=== PATIENT | male | born 1990 | race Caucasian/White ===

== ENCOUNTER 2020-01-27 12:07 | Emergency (ER) | payer SELFPAY ==
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
[2020-01-27 12:10] VITALS: BP 144/86; PULSE 117; RESP 18; TEMP 36.4; O2SAT 98
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
== END 2020-01-27 13:33 | disposition home or self-care (01) ==
PROVIDERS: Emergency Provider Emergency Medicine
DX: S42.021A Displaced fracture of shaft of right clavicle, initial encounter for closed fracture (principal); F17.200 Nicotine dependence, unspecified, uncomplicated; V86.55XA Driver of 3- or 4- wheeled all-terrain vehicle (ATV) injured in nontraffic accident, initial encounter
CPT/HCPCS: 71046; 99284; A4565; A9270

== ENCOUNTER 2020-02-05 00:35 | Day surgery (SDC) | payer SELFPAY ==
[2020-02-01 13:55] VITALS: BMI 29.0
[2020-02-05] VITALS (7 sets, daily range): BP systolic 103–136; BP diastolic 52–91; PULSE 91–111; RESP 12–16; TEMP 36.2–36.4; O2SAT 93–99
--- NOTE | ~2020-02-05 | XR_ITS ---
EXAMINATION: XR surgery orthopedic INDICATION: ORIF of the right clavicle TECHNIQUE: Two intraoperative fluoroscopic images are submitted for review. Fluoroscopy exposure time was 9.1 seconds The DAP for this procedure was 0.156 mGycm2. COMPARISON: 01/27/2020 FINDINGS: Fluoroscopic images demonstrate internal fixation of the previously described displaced and overriding right clavicle fracture. Alignment is anatomic. Please refer to procedure note for full d etails. IMPRESSION: 1. Findings consistent with ORIF of the right clavicle reduced to anatomic alignment. Please refer to procedure note for full details. Reviewed, dictated and finalized at location A. IMPRESSION: 1. Findings consistent with ORIF of the right clavicle reduced to anatomic alig nment. Please refer to procedure note for full details.
--- NOTE | 2020-02-05 10:58 | WPDHPUPDATE1 ---
History and Physical Update Update Date/Time: 02/05/20 10:58 History and Physical has been reviewed, including an updated exam of the patient. There are NO changes in the patient's condition. Risks, benefits, and alternatives have been discussed and questions answered. Patient agrees to proceed with procedure.
[2020-02-05] MEDS: LACTATED RINGERS 1,000 ML 30 ML IV CONT ×2 (11:50→16:04)
[2020-02-05] MEDS: IBUPROFEN IV 800 MG/200 ML 800 MG/200 ML BAG 400 MG IVPB (12:10)
--- NOTE | 2020-02-05 12:40 | WPDANESEPPF ---
Anes - Initial Pre Proc Eval Procedure: Operation Date: 02/05/20 13:00 Proposed Procedures p Open Reduction Internal Fixation Right Clavicle Fracture - Kan Argueta MD Date/Time: 02/05/20 12:40 Surgeon: Kan Argueta MD Pre Op Diagnosis: Right Clavicle Fx Patient Data Age: 29 Gender: M Height: 5 ft 10 in Weight: 95.5 kg Last Vital Signs Temp 97.2 F L 02/05/20 11:12 Pulse 100 02/05/20 11:12 Resp 16 02/05/20 11:12 BP 136/91 H 02/05/20 11:12 Pulse Ox 99 02/05/20 11:12 Allergies Allergy/AdvReac Type Severity Reaction Status Date / Time Penicillins Allergy Severe THROAT Verified 02/05/20 11:26 SWELLING/HIVES/FEVER amoxicillin AdvReac Mild THROAT Verified 02/05/20 11:27 SWELLING/HIVES/FEVER Home Medications Medication Instructions Recorded Confirmed Type hydrocodone 5 mg-acetaminophen 325 1 tablet PO Q6H PRN #20 tablet 02/01/20 02/05/20 Rx mg tablet ibuprofen 200 mg PO Q6H PRN 02/01/20 02/05/20 History Patient hx anesthesia problems: none Family hx anesthesia problems: none PMFSH Past Medical History Medical History (Updated 01/29/20 @ 11:50 by Kan Argueta MD) Clavicle fracture, shaft No active medical problems Social History Social History (Updated 01/29/20 @ 15:43 by Geneva Reed, RT(R)) Smoking packs per day: 1 Smoking cigarettes per day: 20.0 Years smoked: 14 Smoking pack-years: 14.00 Smoking status: Current every day smoker Alcohol intake: current 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 Questions were solicited and answers provided to the satisfaction of the patient/family/POA.
[2020-02-05] MEDS: CLINDAMYCIN 900 MG/NS 50 ML 900 MG/50 ML PIGGYBACK 50 MG IVPB (13:34)
[2020-02-05] MEDS: BUPIVACAINE/EPINEPHRINE 0.5% 30 ML VIAL INFILTRATE (14:30)
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
== END 2020-02-05 17:27 | disposition home or self-care (01) ==
PROVIDERS: Visit Provider Orthopaedic Surgery
PROC: (CPT 23515; principal; 2020-02-05 13:00)
DX: S42.021A Displaced fracture of shaft of right clavicle, initial encounter for closed fracture (principal); V86.55XA Driver of 3- or 4- wheeled all-terrain vehicle (ATV) injured in nontraffic accident, initial encounter; F17.210 Nicotine dependence, cigarettes, uncomplicated
CPT/HCPCS: 23515; A4565; C1713; J1100; J1170; J1741; J2250; J2370; J2405; J2704; J3010; J7120

== ENCOUNTER 2022-08-14 15:43 | Emergency (ER) | payer SELFPAY ==
--- NOTE | ~2022-08-14 | CT_ITS ---
EXAMINATION: CT abdomen pelvis wo con DATE: 08/14/2022 17:09 INDICATION: rt flank pain TECHNIQUE: Computed tomography (CT) of the abdomen and pelvis was performed without intravenous contr ast. Automated exposure control and iterative reconstruction technique were employed. The dose-length product was 574.61 mGy-cm. COMPARISON: 04/13/2010. FINDINGS: Lower thorax: Unremarkable Liver: Geographic fatty infiltration with enlargement. Biliary/Gallbladder: Gallbladder is normal. No bile duct dilation. Pancreas: No mass or duct dilation. Spleen: Normal. Adrenals:No mass. Kidneys: Mild right hydronephrosis and perinephric stranding. Punctate left upper pole calcification. No suspicious mass. GI tract: No small or large bowel dilation. Normal appendix. Colonic and small bowel submucosal fat a s can be seen with chronic IBD and celiac disease. Mesentery/Peritoneum: No ascites, mass, or free air. Retroperitoneum: No mass. Mild atherosclerotic abdominal aortic and/or arterial calcifications. Pelvis: 2 mm calcification in the right UVJ. Otherwise the pelvic organs are normal. Soft Tissues: Soft tissues and body wall unremarkable. Bones: No acute osseous finding. IMPRESSION: 2 mm right UVJ stone causing mild obstructive uropathy. Reviewed, dictated and finalized at location K.
[2022-08-14 15:48] VITALS: BP 148/86; PULSE 104; RESP 18; TEMP 36.4; O2SAT 99
--- NOTE | 2022-08-14 15:53 | ED.ABDPAIN ---
HPI - Abdominal Pain General Chief Complaint: Abdominal Pain Stated Complaint: abd pain Time Seen by Provider: 08/14/22 15:47 History of Present Illness HPI narrative: 31-year-old male with no medical problems presents to the emergency room for sudden onset of right flank pain that radiates into his groin. Patient also endorses a decreased urine flow. No history of kidney stones. Endorses nausea with no vomiting. Also states that he cannot find a comfortable position. Denies any injury or trauma. Denies diarrhea or constipation. Related Data Allergies Allergy/AdvReac Type Severity Reaction Status Date / Time Penicillins Allergy Severe THROAT Verified 08/14/22 15:47 SWELLING/HIVES/FEVER amoxicillin AdvReac Mild THROAT Verified 08/14/22 15:47 SWELLING/HIVES/FEVER Review of Systems Review of Systems: CONSTITUTIONAL: Denies fever, chills, or sweats. EYES: Denies visual changes, redness, or discharge. ENT: Denies rhinorrhea, congestion, sore throat, or otalgia. CARDIOVASCULAR: Denies chest pain, palpitations, or edema. RESPIRATORY: Denies cough or dyspnea. GASTROINTESTINAL: Reports nausea abdominal pain GENITOURINARY: Denies dysuria or hematuria. SKIN: Denies rash or itching. MUSCULOSKELETAL: Denies back pain, joint pain, or myalgia. NEUROLOGIC: Denies headache, numbness, dizziness, or weakness. PSYCHIATRIC: Denies anxiety or depression. 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 EYES: Conjunctivae normal, PERRLA and EOMI. CHEST: Clear to auscultation. No respiratory distress. No wheezes rales or rhonchi. HEART: Regular rate and rhythm. No murmur heard. Normal peripheral pulses. ABDOMEN: Soft, suprapubic tenderness, nondistended, normal active bowel sounds. : Normal external male/female exam. BACK: Right CVA tenderness EXTREMITIES: Normal range of motion. No edema. No clubbing or cyanosis SKIN: Warm, dry, no rash. No noted wounds NEURO: No focal deficits. Alert and oriented x3. MAEW. CN's II-XI intact bilaterally, normal gait PSYCH: Cooperative. Normal mood and affect. Course Vital Signs Vital signs: Vital Signs Temperature 36.4 C 08/14/22 15:48 Pulse Rate 104 H 08/14/22 15:48 Respiratory Rate 18 08/14/22 15:48 Blood Pressure 148/86 H 08/14/22 15:48 Pulse Oximetry 99 08/14/22 15:48 Temperature 36.4 C 08/14/22 15:48 Pulse Rate 104 H 08/14/22 15:48 Respiratory Rate 18 08/14/22 15:48 Blood Pressure 148/86 H 08/14/22 15:48 Pulse Oximetry 99 08/14/22 15:48 MDM - Abdominal Pain Imaging Data Radiologist's impression: Impressions Abdomen/Pelvis CT 08/14/22 17:25 IMPRESSION: 2 mm right UVJ stone causing mild obstructive uropathy. Discharge Plan Discharge Clinical Impression: Kidney stone Patient Disposition: Home, Self-Care Condition: Stable Instructions: Antibiotic Form, Kidney Stones (ED) Prescriptions: New ondansetron 4 mg tablet,disintegrating 4 mg PO Q8H Qty: 10 0RF tramadol 50 mg tablet 50 mg PO Q6H PRN (Reason: pain) Qty: 10 0RF Follow-up/Referrals: PHYSICIAN,CIRCUIT WALKER [Primary Care Provider] - Time of Disposition: 17:39
[2022-08-14] MEDS: SODIUM CHLORIDE 0.9% IV 1,000 ML 999 ML IV CONT (16:06)
[2022-08-14] MEDS: ONDANSETRON INJ 4 MG/2 ML VIAL IV PUSH (16:07)
[2022-08-14] MEDS: fentaNYL CITRATE INJ (*CRX) 100 MCG/2 ML VIAL 50 MCG IV PUSH (16:07)
[2022-08-14 16:14] LABS: Basophils Absolute Auto 0.1 K/mm3 (0.0-0.1); Basophils Percent Auto 0.7 % (0.2-1.2); Eosinophils Percent Auto 0.3 % (0-4.4); Hematocrit 42.4 % (42.0-52.0); Hemoglobin 14.5 g/dL (14.0-18.0); Immature Granulocyte Absolute 0.04 K/mm3 (0.00-0.031); Immature Granulocyte Percent A 0.4 % (0-0.5); Lymphocytes Absolute Auto 1.25 K/mm3 (0.9-3.2); Lymphocytes Percent Auto 12.7 % (18.3-44.2); Mean Corpuscular HGB Conc 34.2 g/dl (32-36); Mean Corpuscular Hemoglobin 34.4 pg (26-34); Mean Corpuscular Volume 100.5 fl (80-100); Mean Platelet Volume 8.7 fl (7.4-10.4); Monocytes Absolute Auto 1.2 K/mm3 (0.1-0.6); Monocytes Percent Auto 12.2 % (2.6-8.5); Neutrophils Absolute Auto 7.2 K/mm3 (1.3-6.7); Neutrophils Percent Auto 73.7 % (45.5-73.1); Platelet Count Result 214 k/mm3 (150-375); Red Blood Count 4.22 M/mm3 (4.6-6.20); Red Cell Distribution Width 13.1 % (11.5-14.5); White Blood Count 9.8 K/mm3 (4.5-10.0)
[2022-08-14 16:23] LABS: Appearance Urine Clear (Clear); Bilirubin Urine 2+ (Negative); Blood Urine 2+ (Negative); Color Urine Amber (Yellow); Glucose Urine UA Negative (Negative); Ketones Urine 4+ mg/dL (Negative); Leukocyte Esterase Ur Negative LEU/UL (Negative); Nitrate Urine Negative (Negative); Protein Urine 2+ mg/dL (Negative); Specific Grav Ur >= 1.030 (1.001-1.035); pH Urine 5.5 (5.0-9.0)
[2022-08-14 16:25] LABS: Alanine Aminotransferase 175 U/L (6-50); Albumin Level 4.8 g/dL (3.5-5.1); Alkaline Phosphatase 101 U/L (38-126); Anion Gap 14 mmol/L (8-16); Aspartate Amino Transferase 177 U/L (17-59); Blood Urea Nitrogen 8 mg/dL (9-20); Calcium 8.8 mg/dL (8.4-10.2); Carbon Dioxide 23 mmol/L (22-30); Chloride 95 mmol/L (98-107); Estimated CRCL calculation 123 ml/min; Estimated Glomerular Filt Rate > 60; Glucose 97 mg/dL (65-110); Sodium 132 mmol/L (137-145)
[2022-08-14 16:35] LABS: Mucus Urine Heavy /lpf; Squamous Epithelial Cell Urine Rare /hpf (Few); WBC Urine 0-3 /hpf
[2022-08-14 16:37] LABS: Add Urine Microscopic? YES
== END 2022-08-14 18:25 | disposition home or self-care (01) ==
PROVIDERS: Emergency Provider Nurse Practitioner Family
DX: N20.0 Calculus of kidney (principal); F17.210 Nicotine dependence, cigarettes, uncomplicated
CPT/HCPCS: 36415; 74176; 80053; 81001; 85025; 96361; 96374; 96375; 99284; J2405; J3010; J7030